=== PATIENT | female | born 1985 | race Caucasian/White ===

== ENCOUNTER → 2018-03-20 | Outpatient (CLI) | payer OTHER ==
[~2018-03-20] VITALS: Ht 165.1 cm; Wt 71.2 kg
[~2018-03-20] MED LIST: BENTYL10 MG PO; LILETTA1 EACH IY; Motrin PO; Percocet 5/325,Endoc PO; TOPAMAX50 MG PO; ~No Medications
== END | disposition home or self-care (01) ==
LOC: AMB 07:30
PROVIDERS: Anesthesiology
DX: K29.80 Duodenitis without bleeding (principal); K21.9 Gastro-esophageal reflux disease without esophagitis; F41.9 Anxiety disorder, unspecified
CPT/HCPCS: 81025; J2405